=== PATIENT | female | born 2000 | race Caucasian/White ===

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

== ENCOUNTER 2018-04-10 19:17 | Emergency (ER) | payer OTHER ==
--- NOTE | 2018-04-10 21:00 | ED ---
Throat Pain/Nasal Congestion - HPI Summary HPI Summary: Pt is a 17 y/o female who presents to the ED c/o dark vision. 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 Pt first noted blurry vision, but now states her vision is dark and fuzzy. Her right eye is more affected than her left. Pt denies any eye pain or eye shaking. She normally wears contacts, but took them out when her vision started to change. Pt notes that she has been working later recently so her eyes may be more fatigued than normal. She wears bi-weekly contacts and forgot to change her contacts this week. Pt denies any recent travel, eye procedures, or . She recently had a bad reaction to Cefzil. - History of Current Complaint Chief Complaint: EDEyeProblem Time Seen by Provider: 04/10/18 20:40 Hx Obtained From: Patient Onset/Duration: Gradual Onset, Lasting Hours, Still Present Cough: None Related History: Other (Noted In Comments) - Fatigued eyes - Allergies/Home Medications Allergies/Adverse Reactions: Allergies Allergy/AdvReac Type Severity Reaction Status Date / Time cefprozil [From Cefzil] Allergy Rash Verified 10/22/17 21:46 PMH/Surg Hx/FS Hx/Imm Hx Endocrine/Hematology History: Denies: Hx Diabetes Respiratory History: Reports: Hx Asthma Sensory History: Reports: Hx Contacts or Glasses - Surgical History Surgery Procedure, Year, and Place: WISDOM TEETH REMOVAL Infectious Disease History: No Infectious Disease History: Denies: Traveled Outside the [place] in Last 30 Days - Family History Known Family History: Negative: Other - MS - Social History Alcohol Use: Occasionally Hx Substance Use: No Substance Use Type: Reports: None Hx Tobacco Use: No Smoking Status (MU): Never Smoked Tobacco Review of Systems Negative: Fever Positive: Blurred Vision, Other - "dark" vision, NEGATIVE: eye pain All Other Systems Reviewed And Are Negative: Yes Physical Exam - Summary Physical Exam Summary: Appearance: Well appearing, no pain distress Skin: warm, dry, reflects adequate perfusion Head/face: normal, temporal arteries non-tender Eyes: EOMI, ELISEO, no injection, globes soft ENT: mucous membranes moist Neck: supple, non-tender Respiratory: CTA, breath sounds present Cardiovascular: RRR, pulses symmetrical Abdomen: non-tender, soft Bowel Sounds: present Musculoskeletal: normal, strength/ROM intact Neuro: normal, sensory motor intact, A&Ox3 Triage Information Reviewed: Yes Vital Signs On Initial Exam: Initial Vitals Temp Pulse Resp BP Pulse Ox 98.5 F 69 16 122/74 97 04/10/18 19:26 04/10/18 19:26 04/10/18 19:26 04/10/18 19:26 04/10/18 19:26 Vital Signs Reviewed: Yes Diagnostics - Vital Signs Vital Signs Temp Pulse Resp BP Pulse Ox 04/10/18 19:26 98.5 F 69 16 122/74 97 - Laboratory Lab Statement: Any lab studies that have been ordered have been reviewed, and results considered in the medical decision making process. Re-Evaluation - Re-Evaluation First Eval Re-Evaluation Time: 21:45 Change: Unchanged Comment: Tested vision with glasses. L eye 20/50. R eye 20/70. Both eyes 20/60. EENT Course/Dx - Course Course Of Treatment: Patient with gradual onset of blurred vision in both eyes without any pain or redness. Her globes are soft and her extraocular movements are intact. No personal or family history of MS or other neurologic/autoimmune or HLA disorder. With correction patient vision is 20/50 left eye, 20/70 right eye and 20/60 both eyes. Ophthalmology is not on-call but she will follow-up first thing in the morning with optometry/ophthalmology for complete eye exam. She has no other neurologic symptoms at this time. - Differential Diagnoses Differential Diagnoses: Cluster Headache, Conjunctivitis, Corneal Abrasion, Detached Retina, Other - Lyme, MS, iritis, uveitis - Diagnoses Provider Diagnoses: Blurred vision Discharge - Sign-Out/Discharge Documenting (check all that apply): Patient Departure - Discharge - Discharge Plan Condition: Stable Disposition: HOME Patient Education Materials: Blurred Vision (ED) Referrals: [facility] [Provider Group] Rolando Kelley MD [Medical Doctor] - Additional Instructions: Call the napper runner to be seen first thing in the morning by optometry or ophthalmology. He will need a more complete eye exam likely to include dilation. Return with fevers, headaches, numbness/weakness, double vision, worse or other concerns as discussed. Make sure you take your contacts and glasses with you to the appointment. If you need further referral [facility] can do this. When you call the napper runner in the morning indicate that you're referred by the ER. - Billing Disposition and Condition Condition: STABLE Disposition: Home - Attestation Statements Document Initiated by Hussein: Yes Documenting Scribe: Cristel Reyna Provider For Whom Hussein is Documenting (Include Credential): Buster Espinoza MD Scribe Attestation: ICristel, scribed for Buster Espinoza MD on 04/10/18 at 2240. Scribe Documentation Reviewed: Yes Provider Attestation: The documentation as recorded by the Cristel hicks accurately reflects the service I personally performed and the decisions made by me, Buster Espinoza MD
[2018-04-10 22:10] VITALS: BP 123/78
== END 2018-04-10 22:08 | disposition home or self-care (01) ==
LOC: ED 19:17
DX: H53.8 Other visual disturbances (principal)
CPT/HCPCS: 99282